=== PATIENT | female | born 1985 | race Caucasian/White ===

== ENCOUNTER 2017-03-09 17:41 | Emergency (ER) | payer MEDICAID ==
[2017-03-09 18:03] VITALS: BMI 33.9
[2017-03-09 18:06] VITALS: O2SAT 100
[2017-03-09 19:24] LABS: RBC URINE 14 /hpf (0-3); URINE BACTERIA OCC (<OCC); URINE BILIRUBIN NEGATIVE (NEGATIVE); URINE BLOOD 2+ (NEGATIVE); URINE COLOR Yellow (YELLOW); URINE GLUCOSE (UA) NORMAL (Normal); URINE KETONE 2+ mg/dL (NEGATIVE); URINE LEUKOCYTE ESTERASE NEG Leu/uL (Negative); URINE PROTEIN 1+ mg/dL (NEGATIVE); URINE UROBILINOGEN NORMAL mg/dL (0.2-1.0); WBC URINE 3 /hpf (0-5)
[2017-03-09 19:25] LABS: BASO % 0.3 % (0.0-2.0); HEMATOCRIT 41.9 % (34.0-47.0); LYMPH # 0.5 K/uL (1.0-4.3); MEAN CELL VOLUME 87.9 fL (81.0-99.0); MEAN CORPUSCULAR HEMOGLOBIN 29.4 pg (27.0-31.0); MEAN CORPUSCULAR HGB CONC 33.4 g/dL (33.0-37.0); MEAN PLATELET VOLUME 7.3 fL (7.2-11.7); MONO # 0.2 K/uL (0.0-0.8); MONO % 2.3 % (0.0-10.0); PLATELET COUNT 417 K/uL (130-400); RED CELL DISTRIBUTION WIDTH 14.8 % (11.5-14.5); WHITE BLOOD COUNT 10.1 K/uL (4.8-10.8)
[2017-03-09 19:34] LABS: CHLORIDE 106 mmol/L (98-107); POTASSIUM 3.4 mmol/L (3.6-5.2); SODIUM 140 mmol/L (132-148)
[2017-03-09 19:36] LABS: GFR AFRICAN-AMERICAN > 60
[2017-03-09 19:37] LABS: ALB/GLOB RATIO 1.2 (1.0-2.1); ALKALINE PHOSPHATASE 94 U/L (38-126); ALT/SGPT 15 U/L (9-52); AST/SGOT 20 U/L (14-36); BLOOD UREA NITROGEN 13 mg/dL (7-17); CALCIUM 9.2 mg/dl (8.6-10.4); CARBON DIOXIDE 21 mmol/L (22-30); GLUCOSE,RANDOM 108 mg/dL (65-105)
[2017-03-09 20:00] LABS: NEUTROPHIL 92 % (50-75); TOTAL CELLS COUNTED 100
[2017-03-09] MEDS ORDERED: Sodium Chloride 0.9% 1,000 ML IV ONE (20:42)
[2017-03-09] MEDS ORDERED: Sodium Chloride 0.9% 1,000 ML ONE (20:55)
--- NOTE | 2017-03-09 22:11 | C.PDOC ---
Time Seen by Provider: 03/09/17 20:30 Chief Complaint (Nursing): GI Problem History Per: Patient Onset/Duration Of Symptoms: Hrs (since this morning), Waxing/Waning Current Symptoms Are (Timing): Still Present Severity: Moderate Location Of Pain/Discomfort: Diffuse Radiation Of Pain To:: None Quality Of Discomfort: Cramping Associated Symptoms: Nausea, Vomiting, Diarrhea Exacerbating Factors: Food Alleviating Factors: None Last Bowel Movement: Today Recent travel outside of the [place]: No Additional History Per: Prior Records Past Medical History Reviewed: Historical Data, Nursing Documentation, Vital Signs Vital Signs: Last Vital Signs Temp 98.7 F 03/09/17 18:03 Pulse 95 H 03/09/17 18:03 Resp 18 03/09/17 18:03 BP 119/80 03/09/17 18:03 Pulse Ox 100 03/09/17 18:03 - Medical History PMH: Anxiety, Asthma, Migraine Surgical History: (and tubal ligation) Family History: States: Unknown Family Hx - Social History Hx Tobacco Use: No Hx Alcohol Use: Yes Hx Substance Use: No - Immunization History Hx Tetanus Toxoid Vaccination: No Hx Influenza Vaccination: No Hx Pneumococcal Vaccination: No Review Of Systems Except As Marked, All Systems Reviewed And Found Negative. Constitutional: Negative for: Fever Cardiovascular: Negative for: Chest Pain Respiratory: Negative for: Shortness of Breath Gastrointestinal: Positive for: Nausea, Vomiting, Abdominal Pain, Diarrhea. Negative for: Melena, Hematochezia, Hematemesis Genitourinary: Negative for: Dysuria Musculoskeletal: Negative for: Neck Pain, Back Pain Skin: Negative for: Rash Neurological: Negative for: Weakness, Numbness, Seizures, Altered Mental Status , Headache Physical Exam - Physical Exam Appears: Non-toxic, No Acute Distress Skin: Normal Color, Warm, Dry, No Rash Head: Atraumatic, Normacephalic Eye(s): bilateral: PERRL, EOMI Neck: Normal ROM, Supple Cardiovascular: Rhythm Regular Respiratory: Normal Breath Sounds, No Accessory Muscle Use Gastrointestinal/Abdominal: Soft, No Tenderness Back: No CVA Tenderness Extremity: Normal ROM Neurological/Psych: Oriented x3, Normal Motor, Normal Sensation ED Course And Treatment - Laboratory Results Result Diagrams: 03/09/17 19:22 03/09/17 19:22 Urine POC: Negative O2 Sat by Pulse Oximetry: 100 Pulse Ox Interpretation: Normal Progress - Interventions Interventions:: Observation, Intravenous fluid - Medications Administered Intravenous: Antiemetic, H-2 estephanie - Data Reviewed Data Reviewed: Lab, Old records - Patient Status Patient status: Completely improved - Continuity of Care Discussed patient case with:: Patient, ED Nurse - Patient Plan Patient Plan: Discharge, F/U with PCP Disposition Counseled Patient/Family Regarding: Studies Performed, Diagnosis, Need For Followup, Rx Given - Disposition Referrals: Cam Fuentes MD [Medical Doctor] - Disposition: HOME/ ROUTINE Disposition Time: 22:11 Condition: IMPROVED Additional Instructions: Drink plenty of fluids. Follow up with your doctor this week. Return to the ER if you develop fever, not tolerating fluids, worsening of symptoms or if you have any other concerns. Prescriptions: Bismuth Subsalicylate [Pepto Bismol] 2 tab PO Q1 PRN #16 ctb PRN Reason: Diarrhea Ondansetron [Zofran] 4 mg PO Q8H PRN #15 tab PRN Reason: Nausea/Vomiting Instructions: Gastroenteritis (ED) - Clinical Impression Clinical Impression: Abdominal pain, Nausea, vomiting and diarrhea
[2017-03-09 22:12] VITALS: BP 108/69; PULSE 85; RESP 20; TEMP 98.6
== END 2017-03-09 22:17 | disposition home or self-care (01) ==
LOC: C.ER 17:41
DX: R10.9 Unspecified abdominal pain (principal); R11.2 Nausea with vomiting, unspecified; R19.7 Diarrhea, unspecified
CPT/HCPCS: 80053; 81001; 83690; 84703; 85025; 96361; 96374; 96375; 99285; J2405; J7040